=== PATIENT | female | born 1985 | race Caucasian/White ===

== ENCOUNTER → 2021-02-15 | Outpatient (CLI) | payer OTHER ==
--- NOTE | 2021-02-15 14:28 | RAD ---
EXAM: Pelvic sonogram. HISTORY: Irregular menses. Cramping. TECHNIQUE: Transabdominal and transvaginal sonographic imaging of the pelvis was performed. COMPARISON: None. FINDINGS: The uterus is retroverted and measures 7.7 x 4.7 x 4.0 cm. The endometrial stripe measures 5.1 mm in thickness. The right ovary is obscured due to prominent loops of bowel within the right adn exa. The left ovary is normal in size and demonstrate normal blood flow. There are multiple left ovar giovanni follicles. There are prominent bilateral pelvic vessels. There is no pelvic free fluid. IMPRESSION: 1. Obscured right ovary. 2. Prominent bilateral pelvic vessels. This can be seen with pelvic congestion. Correlate with sympto matology. 3. Normal endometrial stripe. 4. Multiple left ovarian follicles. Electronically signed by: Marianne Moralez MD (02/15/2021 2:26 PM) [id number]
== END ==
LOC: US 13:40
PROVIDERS: ATTEND Obstetrics & Gynecology
DX: N85.4 Malposition of uterus (principal); N94.89 Other specified conditions associated with female genital organs and menstrual cycle; N92.6 Irregular menstruation, unspecified
CPT/HCPCS: 76830; 76856